=== PATIENT | male | born 1985 | race Hispanic/Latino ===

== ENCOUNTER 2023-02-02 10:25 | Emergency (ER) | payer SELFPAY ==
[~2023-02-02] VITALS: Ht 167.6 cm; Wt 78.8 kg
[~2023-02-02 10:25] MED LIST: AMOXICILLIN500 MG OR; FLEXERIL PO; IBUPROFEN200 MG OR; NO HOME MEDS; ULTRAM50 M1 OR; ULTRAM50 M1 PO; ULTRAM50 MG OR
[2023-02-02] MEDS ORDERED: NAPROXEN500 MG PO (13:17)
[2023-02-02] MEDS ORDERED: FLEXERIL5 M1 PO (13:17)
[2023-02-02 14:12] VITALS: BP 125/78
== END 2023-02-02 14:21 | disposition home or self-care (01) | DRG 552 ==
LOC: ED 10:25
DX: M54.2 Cervicalgia (principal)